=== PATIENT | male | born 1960 | race Caucasian/White ===

== ENCOUNTER 2018-12-19 09:21 | Outpatient (CLI) | payer BC ==
--- NOTE | 2018-12-19 14:43 | NM ---
Radionucleotide three-phase bone scan feet HISTORY: Chronic ulcer right foot. FINDINGS: Arterial phase images show increased uptake of radiotracer over the medial aspect of the ri ght forefoot, at the level of the metatarsal head and the great toe. There is also somewhat linear uptake along the far medial aspect of the mid foot, medial to the expected location of the bones. Blood pool images show persistent uptake at the first metatarsal heads bilaterally. Heterogeneous upt mark is also present within the second toes and throughout the right hindfoot and midfoot. Whole-body delayed images again show prominent uptake at each first metatarsal head and each mid foot . Prominent uptake at the right hindfoot. Heterogeneously increased uptake also involves each acromioclavicular joint and the mid thoracic spine. Uptake over the midline maxilla on the delayed an terior view may be related to dental disease. IMPRESSION: 3 phase uptake at the right first metatarsal head and base of the right big toe is consis tent with an aggressive process such as osteomyelitis (although not specific for such). Radiographs are not currently available for direct correlation. Please consider correlation with foot radiographs . MRI would be helpful if needed for better anatomic localization. Soft tissue uptake at the medial aspect of the right foot, likely related to cellulitis. Prominent degenerative type uptake of the feet with degenerative type uptake of the shoulders and tho racic spine. Probable anterior maxillary dental disease.
== END 2018-12-19 09:22 | disposition home or self-care (01) ==
LOC: NM 09:21
PROVIDERS: ATTEND Internal Medicine Infectious Disease
DX: L97.515 Non-pressure chronic ulcer of other part of right foot with muscle involvement without evidence of necrosis (principal)
CPT/HCPCS: 78315; A9503

== ENCOUNTER → 2018-12-22 | Day surgery (SDC) | payer BC ==
[~2018-12-22] MED LIST: Heparin 1,000 UNITS/ML VIAL ONE
--- NOTE | 2018-12-22 10:17 | SPC ---
Sonographic guided left upper extremity PICC placement HISTORY: Osteomyelitis. FINDINGS: After explaining the procedure and answering all questions, the left upper extremity was pr epped and draped in usual sterile fashion. Sterile technique, buffered local anesthesia, sonographic guidance, and a 22-gauge needle were used to carefully access the left cephalic vein. Sta ndard technique was used to place the tip of a 5 Bulgarian single lumen PICC so that the tip lies at the level of the superior vena cava. Catheter was flushed and secured externally. Patient tolerated t he procedure well and was dismissed in good condition. Fluoroscopy time 0.1 minutes. IMPRESSION: Left upper extremity PICC is ready for use.
== END ==
LOC: SPEC 08:50
PROVIDERS: ATTEND Internal Medicine Infectious Disease
PROC: 02HV33Z Insertion of Infusion Device into Superior Vena Cava, Percutaneous Approach (ICD-10-PCS; principal; 2018-12-22)
DX: M86.9 Osteomyelitis, unspecified (principal)
CPT/HCPCS: 36569; C1751; J1644

== ENCOUNTER → 2018-12-27 | Day surgery (SDC) | payer BC ==
--- NOTE | 2018-12-27 14:50 | SPC ---
EXAM: PICC LINE EXCHANGE 12/27/18 HISTORY: Osteomyelitis. COMPARISON: 12/22/18. EXPOSURE: 0.8 minutes. 4132 mGy*cm2. FINDINGS: Successful PICC line exchange. Exchange is performed with fluoroscopy. Distal tip is in the SVC. 48 c m trim length. Single lumen flushes and aspirates without difficulty. TECHNIQUE: Consent obtained to perform a PICC line exchange. Left arm was prepped and draped in the sterile [facility] ion. The PICC line was also prepped and draped in the sterile fashion. The PICC line was cut and a 0 .018 guidewire was advanced through the PICC line into the superior vena cava. Under fluoroscopy, the PICC line was exchanged. A single lumen 48 cm 5 [place] catheter flushes and aspirates without diffic ulty. IMPRESSION: Successful PICC line exchange. POS: OFF
== END ==
LOC: SPEC 12:59
PROVIDERS: ATTEND Internal Medicine Infectious Disease
PROC: 02HV33Z Insertion of Infusion Device into Superior Vena Cava, Percutaneous Approach (ICD-10-PCS; principal; 2018-12-27)
DX: M86.9 Osteomyelitis, unspecified (principal)
CPT/HCPCS: 36584; C1751; J1644

== ENCOUNTER 2018-12-28 09:06 | Outpatient (CLI) | payer BC ==
--- NOTE | 2018-12-28 11:07 | RAD ---
RIGHT FOOT 3 VIEWS: Date: 12/28/18 HISTORY: Right foot ulcer. FINDINGS/IMPRESSION: There are postop changes with fusion of the first MTP joint. There are screws across the first MTP angela int and in the head of the second metatarsal. No acute fracture, dislocation, or bony destruction is seen. POS: CAROL
== END 2018-12-28 09:07 | disposition home or self-care (01) ==
LOC: BICRAD 09:06
PROVIDERS: ATTEND Podiatrist
DX: L97.419 Non-pressure chronic ulcer of right heel and midfoot with unspecified severity (principal); Z98.890 Other specified postprocedural states

== ENCOUNTER → 2019-01-03 | Day surgery (SDC) | payer BC ==
[~2019-01-03] MED LIST changes: +Iopamidol 300 61% 100 ML VIAL FS ONE
--- NOTE | 2019-01-03 11:42 | SPC ---
PREPROCEDURE DIAGNOSIS: Need for long-term IV access POST PROCEDURE DIAGNOSIS: Same PROCEDURE: Left upper extremity PICC exchange over a wire RESIDUE FURNACE OPERATOR: Greer ANESTHESIA: 5 mL of buffered 1% lidocaine. CONTRAST: 10 mL EXPOSURE: 4.6 minutes of fluoroscopic time and 21,531 mg/sq cm TECHNIQUE: Prior to the procedure, the risks and benefits of left upper extremity PICC exchange over a wire was explained to the patient and he consented fully to the procedure. The PICC line was pulled back and approximately 20 cm remained in the left arm. Fluoroscopy showed th e tip in the left subclavian region. The line was then cut and a PICC wire was attempted to be placed to the level of the atriocaval junction. However, the wire kept extending down the left arm ra ther than passing more proximally. The indwelling PICC line was removed. The peel-away sheath for a PICC line was then placed over the w maria isabel. The PICC wire was removed and a run was performed with iodinated contrast showing a patent cephalic vein with an acute angle at the region of the subclavian vein. No thrombus was seen and cont rast was seen flowing proximally towards the chest. A 0.018 angled wire was then placed through the peel-away sheath. This wire was able to be passed mor e proximally to the level of the atriocaval junction. The PICC line was cut to 48 cm. The PICC line was then placed over this wire through the peel-away sheath. The peel-away sheath was removed and the PICC line was seen with its tip in the superior vena cava. The PICC line flushed without difficulty. The PICC line was sutured to the patient's arm with 0 silk sutures. IMPRESSION: Status post successful left upper extremity PICC exchange
== END ==
LOC: SPEC 09:42
PROVIDERS: ATTEND Internal Medicine Infectious Disease
PROC: 02HV33Z Insertion of Infusion Device into Superior Vena Cava, Percutaneous Approach (ICD-10-PCS; principal; 2019-01-03)
DX: M86.8X7 Other osteomyelitis, ankle and foot (principal); Z79.2 Long term (current) use of antibiotics
CPT/HCPCS: 36584; C1751; C1769; J1644; Q9967

== ENCOUNTER → 2019-03-22 | Day surgery (SDC) | payer BC ==
[~2019-03-22] MED LIST changes: -Iopamidol 300 61% 100 ML VIAL FS ONE
--- NOTE | 2019-03-22 11:31 | SPC ---
Ultrasound and Fluoroscopic guided right upper extremity single lumen PICC placement: 08/23/2018 HISTORY: Need for central vascular access. FINDINGS: Informed consent obtained prior to the procedure. Right antecubital fossa prepped and draped in normal sterile fashion. Skin overlying the basilic vein anesthetized with 1% buffered lidocaine. With direct sonographic guid ance, vascular access is obtained via the basilic vein and an 0.018in wire was advanced to the cavoatrial junction. Intravascular length is calculated at 42.5 cm and of the PICC is cut accordingly . Needle is removed and replaced with a peel-away sheath. The PICC was advanced over the wire. Wire and peel-away sheath were removed. The tip of the catheter overlies the cavoatrial junction. As requested, PICC line was sutured into place. The port flushes well and the catheter is ready for use. Exposure data: 0 minutes of fluoroscopic time 192 mGy per centimeter squared IMPRESSION: Successful ultrasound guided placement of a right upper extremity PICC.
== END ==
LOC: SPEC 09:25
PROVIDERS: ATTEND Internal Medicine Infectious Disease
PROC: 02HV33Z Insertion of Infusion Device into Superior Vena Cava, Percutaneous Approach (ICD-10-PCS; principal; 2019-03-22)
DX: M86.8X6 Other osteomyelitis, lower leg (principal)
CPT/HCPCS: 36569; C1751; J1644